=== PATIENT | female | born 1950 | race Caucasian/White ===

== ENCOUNTER → 2017-02-05 | Outpatient (CLI) | payer MEDICARE ==
[~2017-02-05] MED LIST: ADVIL200 MG PO; ASPIRIN 81MG TA81 MG PO; ATENOLOL100 MG PO; CHLORTHALIDONE25 MG PO; CRESTOR5 MG PO; DAILY VITE1 TA2 PO; DICLOFENAC SOD75 MG PO; EFFEXOR XR 75MG75 MG PO; GABAPENTIN300 M1 PO; LISINOPRIL 5MG T5 MG PO; LIVALO4 MG PO; LORTAB 5/500 501 TAB PO; METFORMIN HCL1000 MG PO; PRILOSEC20 MG PO; TRAMADOL50 M1 PO; TYLENOL 325MG325 MG PO; VICODIN 5/500 T1 TAB PO; ZOFRAN4 MG PO; Zofran4 MG PO
--- NOTE | 2017-02-05 14:56 | RADIOLOGY REPORT PS360 ---
[id number] VIEWS HISTORY: RT SHOULDER PAIN ORDERING PHYSICIAN: Steven Damon MD PATIENT AGE: 66 years COMPARISON: None FINDINGS: There is moderate subacromial stenosis with hypertrophic change of the acromioclavicular joint. Cystic changes are present involving the distal aspect of the clavicle measuring approximately 17 mm nonspecific and may be due to a subarticular cyst from osteoarthritic change. There are mild osteoarthritic changes of the glenohumeral joint. No fracture or dislocation. No destructive process evident. IMPRESSION: 1. Moderate subacromial stenosis which may result in impingement symptomatology upon the rotator cuff and could be confirmed with MRI if clinically warranted. 2. 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
== END ==
LOC: RAD 13:27
DX: M25.511 Pain in right shoulder (principal)

== ENCOUNTER 2017-06-14 09:10 | Outpatient (CLI) | payer MEDICARE ==
[~2017-06-14 09:10] MED LIST changes: +FLONASE 50 MCG16 GM; +LEVAQUIN500 MG PO; +NYSTATIN SUSPEN60 ML PO; +PROMETHAZINE D118 ML PO
[2017-06-14 09:40] VITALS: BP 147/56
[2017-06-14 10:10] VITALS: BP 138/59
[2017-06-14 10:25] VITALS: BP 141/61
== END 2017-06-14 10:30 | disposition home or self-care (01) ==
LOC: COP 09:10
DX: N39.0 Urinary tract infection, site not specified (principal); B96.20 Unspecified Escherichia coli [E. coli] as the cause of diseases classified elsewhere; Z16.12 Extended spectrum beta lactamase (ESBL) resistance
CPT/HCPCS: J1335

== ENCOUNTER → 2017-08-13 | Outpatient (CLI) | payer MEDICARE ==
--- NOTE | 2017-08-13 14:44 | RADIOLOGY REPORT PS360 ---
CT CHEST W/O CONTRAST HISTORY: Cough, anemia ANEMIA,COUGH,LIVER CYSTS,RENAL LESIONS ORDERING PHYSICIAN: Clifford Daugherty MD PATIENT AGE: 66 years TECHNIQUE: Helical acquisition obtained following the intravenous administration of 75 mL of Isovue 370 .. Axial, sagittal, and coronal reformatted images are generated and reviewed. COMPARISON: None FINDINGS: The left lobe of the thyroid gland is enlarged with hypoattenuation along the mid pole measuring 17 mm. Coronary artery calcifications are present. Scattered small lymph nodes are present in the mediastinum and aldo. No mediastinal or hilar mass is evident. No axillary adenopathy. There is mild dilatation of the proximal descending portion of the thoracic aorta measuring up to 3.8 cm. The mid descending thoracic aorta is 2.7 cm. No pericardial effusion. Normal heart size. Scattered calcified granulomas are present. There are mild fibrotic changes in the right lung base posteriorly and medially. A 3 mm noncalcified nodules present in the mid aspect of the left lower lobe nonspecific. No effusions or infiltrates. Upper abdominal images demonstrates multiple hepatic cysts measuring up to 5.5 cm in the hepatic dome. 2.8 cm left renal cyst. The adrenal glands are unremarkable. There are postsurgical changes of the upper lumbar spine. IMPRESSION: 1. Scattered pulmonary fibrotic changes with evidence of old granulomatous disease. 3 mm noncalcified nodule with aspect of the left lower lobe nonspecific 2. Coronary artery disease. 3. Enlarged left lobe of thyroid gland with hypoattenuation suggesting a nodule. This may be better evaluated with ultrasound. 4. Hepatic and left renal cysts
== END ==
LOC: RAD 12:34
DX: R05 Cough (principal); D64.9 Anemia, unspecified; N28.89 Other specified disorders of kidney and ureter; Q44.6 Cystic disease of liver

== ENCOUNTER → 2017-08-23 | Outpatient (CLI) | payer MEDICARE ==
[2017-08-24 08:41] LABS: Immunoglobulin A, Qn 128 mg/dL (87-352); Immunoglobulin G, Qn 1001 mg/dL (700-1600); Immunoglobulin M, Qn 108 mg/dL (26-217)
[2017-08-24 09:37] LABS: Folate (Folic Acid) >20.0 ng/mL (>3.0); Vitamin B12 521 pg/mL (211-946)
[2017-08-24 16:41] LABS: Albumin 3.3 g/dL (2.9-4.4); Alpha-1-Globulin 0.2 g/dL (0.0-0.4); Gamma Globulin 1.1 g/dL (0.4-1.8); Protein, Total 6.8 g/dL (6.0-8.5)
== END ==
LOC: LAB 11:42
PROVIDERS: Nurse Practitioner
DX: D64.9 Anemia, unspecified (principal); N28.9 Disorder of kidney and ureter, unspecified; Z87.11 Personal history of peptic ulcer disease

== ENCOUNTER → 2017-08-24 | Outpatient (CLI) | payer MEDICARE ==
[2017-08-27 14:52] LABS: STOOL OCCULT BLOOD NEGATIVE (NEG)
== END ==
LOC: LAB 09:00
PROVIDERS: Nurse Practitioner
DX: D64.9 Anemia, unspecified (principal); N28.9 Disorder of kidney and ureter, unspecified; Z87.11 Personal history of peptic ulcer disease
CPT/HCPCS: G0328

== ENCOUNTER → 2017-08-25 | Outpatient (CLI) | payer MEDICARE ==
[2017-08-27 14:53] LABS: STOOL OCCULT BLOOD NEGATIVE (NEG)
== END ==
LOC: LAB 11:30
PROVIDERS: Nurse Practitioner
DX: D64.9 Anemia, unspecified (principal); N28.9 Disorder of kidney and ureter, unspecified; Z87.11 Personal history of peptic ulcer disease
CPT/HCPCS: G0328

== ENCOUNTER → 2017-08-26 | Outpatient (CLI) | payer MEDICARE ==
[2017-08-27 14:53] LABS: STOOL OCCULT BLOOD NEGATIVE (NEG)
== END ==
LOC: LAB 09:30
PROVIDERS: Nurse Practitioner
DX: D64.9 Anemia, unspecified (principal); N28.9 Disorder of kidney and ureter, unspecified; Z87.11 Personal history of peptic ulcer disease
CPT/HCPCS: G0328

== ENCOUNTER → 2017-10-01 | Outpatient (CLI) | payer MEDICARE ==
[~2017-10-01] MED LIST changes: +PRILOSEC2.5 MG/Pac
--- NOTE | 2017-10-01 12:52 | RADIOLOGY REPORT PS360 ---
FOOT-LT-3 VIEWS HISTORY: Lateral foot pain following injury LEFT FOOT PAIN ORDERING PHYSICIAN: Lulu Moraes APRN PATIENT AGE: 67 years COMPARISON: None FINDINGS: Weightbearing views are performed. There is a nondisplaced oblique fracture through the base of the fifth metatarsal extending into the proximal articular surface. Mild pes planus. There is some mild calcification anterior to a small calcaneal spur. There is normal mineralization.. There is mild hypertrophic change of the distal first metatarsal with mild osteophyte formation. IMPRESSION: Nondisplaced oblique fracture proximal aspect of fifth metatarsal. Pes planus with mild hypertrophic change of the distal aspect of the first metatarsal
== END ==
LOC: RAD 11:32
DX: M79.672 Pain in left foot (principal)

== ENCOUNTER 2017-10-27 12:56 | Inpatient (IN) | payer MEDICARE, OTHER ==
[~2017-10-27] VITALS: Ht 167.6 cm; Wt 94.3 kg
--- OUTSIDE RECORDS SUMMARY | 2017-10-27 13:13 | External Medical Summary Rpt | CCD ---
Author Author , LAURA Organization [facility] Address Unknown Phone [email or web address] Immunization Name Date Rout CVX Reac Dose Comm Prov Is Faci e tion ent ider Refu lity Give sed n Infl 10-1 0.5 Hist PD20 No PD20 uenz 1-20 mL oric 255 255 a 17 al Quad Info rmat W/Pr ion es - Sour ce Unsp ecif ied Zost 02-1 121 1 mL Hist RITE No RITE er 6-20 oric AID0 AID0 17 al 3938 3938 Info rmat ion - Sour ce Unsp ecif ied Infl 12-0 140 0.5 Hist KHAF No RITE uenz 1-20 mL oric TATIANNA AID0 a, 16 al AYMA 3938 P-Fr Info N ee rmat ion - Sour ce Unsp ecif ied Hep 05-2 43 999 Hist H149 No H149 B, 9-20 oric adul 01 al t Info rmat ion - Sour ce Unsp ecif ied Hep 11-1 Intr 43 999 Hist H149 No H149 B, 4-20 amus oric adul 00 cula al t r Info rmat ion - Sour ce Unsp ecif ied Hep 10-0 Subc 43 999 Hist H149 No H149 B, 3-20 utan oric adul 00 eous al t Info rmat ion - Sour ce Unsp ecif ied Td 03-0 Intr 9 999 Hist H149 No H149 (helder 6-19 amus oric lt), 97 cula al r Info adso rmat rbed ion - Sour ce Unsp ecif ied
--- OUTSIDE RECORDS SUMMARY | 2017-10-27 13:13 | External Medical Summary Rpt | CCD ---
Author Author , LAURA SANCHEZ Address Unknown Phone [email or web address] Name Relationship Address Phone JENNIFER, Next Of Kin [address] [address] [address] Purpose Continuity of Care Document - 09-09-2013 through 2016 Problems Code Diagnosis DOS Provider Status D72.825 BANDEMIA N12 TUBULO-INTE RSTITIAL NEPHRITIS, NOT SPCF ACUTE OR CHRONIC Allergies, Adverse Reactions, Alerts Type Drug Allergy Adverse Reaction to Substance Substance Reaction Severity Penicillin Unknown Unknown Penicillin G Unknown Unknown Acetaminophen Unknown Unknown Hydrocodone Unknown Unknown Medications Na ND Rx Da Fi Fi Am Da Di Ph RX Ph St me C No te ll ll ou ys ag ar # ys at rm s nt no ma ic us Or Da si cy ia de te s n re d SO 00 10 0 No DI 40 -1 UM 97 9- Lo 98 20 ng CH 30 13 er LO 9 RI Ac DE ti ve 0. 9% SO MAME TI ON Sa 63 10 0 No li 80 -1 ne 70 9- Lo 10 20 ng Fl 07 13 er us 5 h Ac 10 ti ML ve Sy ri ng e ON 00 10 0 No DA 64 -1 NS 16 9- Lo ET 08 20 ng RO 02 13 er N 5 HC Ac L ti 4 ve MG /2 ML AL Vital Signs 09-09-2013 11:47 Name Value Interpretat Reference Comment ion Range BP 120 mm[Hg] Diastolic BP Systolic 150 mm[Hg] Heart 65 /min Rate/Pulse O2% 100 % Respiratory 20 /min Rate 09-09-2013 09:52 Name Value Interpretat Reference Comment ion Range BP 82 mm[Hg] Diastolic BP Systolic 137 mm[Hg] Heart 66 /min Rate/Pulse O2% 100 % Respiratory 20 /min Rate Results Labs Lab Lab Date Result Refere Interp Status Commen Order Detail nces retati t Range on Protein Electrophoresis (10-06-2017 14:17) Serum = 1.0 0.7-1.7 complet or 017 ed plasma 14:17 albumin /globul in mass ra Serum = 3.4 2.2-3.9 complet globuli 017 g/dL ed n 14:17 measure ment by calcula mark Serum = 0.3 Not complet or 017 g/dL Observe ed plasma 14:17 d protein monoclo nal measu Serum = 1.2 0.4-1.8 complet gamma 017 g/dL ed globuli 14:17 n measure ment by prot Serum = 1.0 0.7-1.3 complet or 017 g/dL ed plasma 14:17 beta globuli n measure men Serum = 1.0 0.4-1.0 complet alpha-2 017 g/dL ed -globul 14:17 in measure ment Serum = 0.2 0.0-0.4 complet alpha-1 017 g/dL ed -globul 14:17 in measure ment Serum = 3.5 2.9-4.4 complet albumin 017 g/dL ed 14:17 measure ment by protein alma Please Comment . complet note: 017 ed 14:17 Comment: Comment: Protein electrophoresis scan will follow via computer, Comment: mail, or banking assistant delivery. Comment: Performed at: [facility] Comment: [id number], [place] [phone] Comment: [employer] Management Specialist: Rodrigue Lanza PhD, Phone: [phone] Serum = 6.9 6.0-8.5 complet or 017 g/dL ed plasma 14:17 protein measure ment (mas Serum or plasma uric acid measurement (m (10-06-2017 14:17) Serum = 8.7 2.6-7.2 complet or 017 mg/dL ed plasma 14:17 uric acid measure ment (m Phosphorus measurement (10-06-2017 14:17) Phospho = 3.7 2.4-4.9 complet jonnathan 017 mg/dL ed measure 14:17 ment CBC w auto diff (10-06-2017 14:17) Blood = 10.2 4.8-10. complet leukocy 017 K/MM3 8 ed aga 14:17 count (number /volume ) Automat = 13.0 11.5-17 complet ed 017 % .5 ed erythro 14:17 cyte distrib ution width Red = 3.52 4.2-5.4 complet blood 017 M/mm3 ed cell 14:17 count Blood = 491 142-424 complet platele 017 K/mm3 ed t count 14:17 Automat = 7.6 7.4-10. complet ed 017 fl 4 ed blood 14:17 platele t mean volume babak [place] % = 6.0 % 1.7-9.3 complet 017 ed 14:17 Absolut = 0.6 0.1-1.0 complet e 017 K/mm3 ed monocyt 14:17 e count Automat = 91.5 82.2-97 complet ed 017 fl .8 ed erythro 14:17 cyte mean corpusc ular v Automat = 31.4 31.8-35 complet ed 017 g/dl .4 ed erythro 14:17 cyte mean corpusc ular h Mean = 28.7 27-31.2 complet corpusc 017 pg ed ular 14:17 hemoglo bin ([facility]) determ Lymphoc = 24.5 10-50.0 complet yte 017 % ed count, 14:17 blood, automat ed Absolut = 2.5 0.7-4.5 complet e 017 K/mm3 ed lymphoc 14:17 yte count Blood = 10.1 12.2-16 complet hemoglo 017 g/dL .2 ed bin 14:17 measure ment (mass/v olum Blood = 32.2 37.0-47 complet hematoc 017 % .0 ed rit 14:17 (volume fractio n) Granulo = 54.9 37.0-80 complet cyte 017 % .0 ed percent 14:17 age Blood = 5.6 1.8-7.8 complet granulo 017 K/mm3 ed cytes 14:17 automat ed count (numb Automat = 13.8 0.1-12. complet ed 017 % 0 ed blood 14:17 eosinop hils/10 0 leukocy t Automat = 1.4 0.0-0.4 complet ed 017 K/mm3 ed blood 14:17 eosinop hil count Baso % = 0.9 % 0.1-2.0 complet 017 ed 14:17 Automat 2 = 0.1 0-0.2 complet ed 017 K/MM3 ed blood 14:17 basophi l count (count/ vo Comprehensive metabolic panel (10-06-2017 14:17) Protein = 7.3 6.4-8.2 complet total 017 gm/dL ed ser/jesica 14:17 s ALT = 21 12-78 complet (SGPT) 017 U/L ed ser/jesica 14:17 s Serum = 17 15-37 complet or 017 U/L ed plasma 14:17 asparta te aminotr ansfera Serum = 137 136-145 complet sodium 017 mmoL/L ed measure 14:17 ment Serum = 4.4 3.5-5.1 complet potassi 017 mmoL/L ed um 14:17 measure ment Serum = 133 74-106 complet or 017 mg/dL ed plasma 14:17 glucose measure ment (mas Serum = 3.7 1.3-3.2 complet globuli 017 gm/dL ed n 14:17 measure ment (mass/v olume) Estimat = 32 59- complet ed 017 ML/MIN ed glomeru 14:17 lar filtrat ion rate (GF Comment: REFERENCE RANGE: >60 ML/MIN/1.73 SQUARE METERS Comment: If this patient is -[place], then multiply the Comment: result by 1.210. Estimat = 52 50-200 complet ion of 017 ML/MIN ed creatin 14:17 ine renal clearan ce Serum = 1.6 0.55-1. complet or 017 mg/dL 02 ed plasma 14:17 creatin ine measure ment ( Carbon = 28 21.0-32 complet dioxide 017 mmoL/L .0 ed 14:17 measure ment Serum = 103 98-107 complet or 017 mmoL/L ed plasma 14:17 chlorid e measure ment (mo Serum 2 = 9.2 8.5-10. complet or 017 mg/dL 1 ed plasma 14:17 calcium measure ment (mas Serum = 24 7-18 complet or 017 mg/dL ed plasma 14:17 urea nitroge n measure men Serum 2 = 0.3 0.2-1.0 complet or 017 mg/dL ed plasma 14:17 total bilirub in measure m Serum = 130 46-116 complet or 017 U/L ed plasma 14:17 alkalin e phospha tase babak Serum = 3.6 3.4-5.0 complet or 017 gm/dL ed plasma 14:17 albumin measure ment (mas Serum 2 = 1.0 1.1-1.8 complet or 017 ed plasma 14:17 albumin /globul in mass ra Hemoglobin.gastrointestinal [Presence] in Stool (08-26-2017 09:30) Hemoglo NEGATIV NEG complet bin.gas 017 E ed trointe 09:30 stinal [Presen ce] in Stool --1st specime n Hemoglobin.gastrointestinal [Presence] in Stool (08-25-2017 11:30) Hemoglo NEGATIV NEG complet bin.gas 017 E ed trointe 11:30 stinal [Presen ce] in Stool --1st specime n Hemoglobin.gastrointestinal [Presence] in Stool (08-24-2017 09:00) Hemoglo NEGATIV NEG complet bin.gas 017 E ed trointe 09:00 stinal [Presen ce] in Stool --1st specime n Differential panel, method unspecified - (06-09-2017 23:58) Anisocy 1+ complet tosis 017 ed [Presen 23:58 ce] in Blood LYMPH 3 % 10% - Low complet 017 50% ed 23:58 Platele NORMAL complet ts 017 ed [Presen 23:58 ce] in Blood by Light microsc opy Stomato 2+ complet cytes 017 ed [Presen 23:58 ce] in Blood by Light microsc opy Urinalysis dipstick W Reflex Microscopic panel in Urine (06-09-2017 23:50) Bacteri 4+ O complet a 017 ed [Presen 23:50 ce] in Urine sedimen t by Light microsc opy Erythro 20-50 0 complet cytes 017 ed [Presen 23:50 ce] in Urine sedimen t by Light microsc opy Epithel 5-10 0#/hp complet ial 017 f - ed cells.s 23:50 5#/hp quamous f [Presen ce] in Urine sedimen t by Microsc opy high power field Urinalysis dipstick W Reflex Microscopic panel in Urine (06-09-2017 23:50) Appeara CLOUDY CLEAR complet nce of 017 ed Urine 23:50 Bilirub NEGATIV NEG complet in 017 E ed [Presen 23:50 ce] in Urine by Test strip Erythro 3+ NEG Abnorma complet cytes 017 l ed [Presen 23:50 ce] in Urine Color YELLOW YELLOW complet of 017 ed Urine 23:50 Ketones NEGATIV NEG complet 017 E ed [Presen 23:50 ce] in Urine by Automat ed test strip Mucus 2+ NEG Abnorma complet [Presen 017 l ed ce] in 23:50 Urine sedimen t by Light microsc opy Nitrite NEGATIV NEG complet 017 E ed [Presen 23:50 ce] in Urine by Test strip Urobili 0.2 NEG complet nogen 017 ed [Presen 23:50 ce] in Urine by Test strip Influenza virus A+B Ag [Presence] in Unspecified specimen (06-09-2017 00:25) Influen NOT NOT complet za 017 DETECTE DETECTD ed virus A 00:25 D Ag [Presen ce] in Unspeci fied specime n Influen NOT NOT complet za 017 DETECTE DETECTD ed virus B 00:25 D Ag [Presen ce] in Unspeci fied specime n URINALYSIS/COMPLETE (09-09-2013 11:00) URINE 09-09-2 YELLOW YELLOW complet COLOR 013 ed 11:00 URINE 09-09-2 CLOUDY CLEAR complet APPEARA 013 ed NCE 11:00 URINE 09-09-2 NEGATIV NEG complet GLUCOSE 013 E ed - 11:00 DIPSTIC K URINE 09-09-2 NEGATIV NEG complet BILIRUB 013 E ed IN - 11:00 DIPSTIC K URINE 09-09-2 NEGATIV NEG complet KETONE 013 E mg/dL ed 11:00 URINE 09-09-2 1.010 1.005-1 complet SPECIFI 013 UNK .030 ed C 11:00 GRAVITY URINE 09-09- NEGATIV NEG complet BLOOD 013 E ed 11:00 URINE 09-09-2 8.0 UNK 5.0-8.5 complet PH 013 ed 11:00 URINE 09-09- NEGATIV NEG complet PROTEIN 013 E mg/dL ed - 11:00 DIPSTIC K URINE 09-09-2 0.2 NEG complet UROBILI 013 E.U./dL ed NOGEN - 11:00 DIPSTIC K URINE 09-09-2 NEGATIV NEG complet NITRATE 013 E ed - 11:00 DIPSTIC K URINE 09-09-2 NEGATIV NEG complet LEUK 013 E ed ESTERAS 11:00 E URINE 09-09- 10-20 O complet WBC 013 wbc/hpf ed 11:00 URINE 09-09- 20-50 0-5 complet SQUAMOU 013 #/hpf ed S CELLS 11:00 URINE 09-09- 1+ O complet BACTERI 013 ed A 11:00 URINE 09-09-2 OCC OCC complet MUCUS 013 ed 11:00 COMPREHENSIVE METABOLIC PANEL (09-09-2013 09:20) Glucose 09-09- 163 74-106 complet 013 mg/dL ed Bld-mCn 09:20 c BUN 09-09- 16 7-18 complet Bld-mCn 013 mg/dL ed c 09:20 Creat 09-09-2 1.1 0.6-1.0 complet SerPl-m 013 mg/dL ed Cnc 09:20 ESTIMAT 09-09- 73 50-200 complet ED 013 ML/MIN ed CREATIN 09:20 INE CLEARAN CE GFR 09-09- 50 59- complet (ESTIMA 013 ML/MIN ed LIZETH) 09:20 Sodium 09-09- 142 136-145 complet SerPl-s 013 mmoL/L ed Cnc 09:20 Potassi 09-09- 3.4 3.5-5.1 complet um 013 mmoL/L ed SerPl-s 09:20 Cnc Chlorid 103 98-107 complet e 013 mmoL/L ed SerPl-s 09:20 Cnc CO2 25 21.0-32 complet SerPl-s 013 mmoL/L .0 ed Cnc 09:20 Calcium 09-09- 9.0 8.5-10. complet 013 mg/dL 1 ed SerPl-m 09:20 Cnc Prot 09-09- 8.3 6.4-8.2 complet SerPl-m 013 gm/dL ed Cnc 09:20 Albumin 09-09- 3.6 3.4-5.0 complet 013 gm/dL ed SerPl-m 09:20 Cnc Globuli 4.7 1.3-3.2 complet n 013 gm/dL ed Ser-mCn 09:20 c Albumin 0.8 UNK 1.1-1.8 complet /Glob 013 ed SerPl-m 09:20 Rto Bilirub 09-09- 0.5 0.2-1.0 complet 013 mg/dL ed SerPl-m 09:20 Cnc AST 20 U/L 15-37 complet SerPl-c 013 ed Cnc 09:20 ALT 09-09- 35 U/L 30-65 complet SerPl-c 013 ed Cnc 09:20 ALP 09-09- 156 U/L 50-136 complet SerPl-c 013 ed Cnc 09:20 Amylase SerPl-cCnc (09-09-2013 09:20) Amylase 09-09- 23 U/L 25-115 complet 013 ed SerPl-c 09:20 Cnc LIPASE (09-09-2013 09:20) LIPASE 09-09- 112 U/L 73-393 complet 013 ed 09:20 CBC with AUTO DIFF (09-09-2013 09:20) WBC # 10-19-2 11.3 4.8-10. complet Bld 013 K/MM3 8 ed Auto 09:20 RBC # 10--2 3.95 4.2-5.4 complet Bld 013 M/mm3 ed Auto 09:20 Hgb 19-2 12.0 12.2-16 complet Bld-mCn 013 g/dL .2 ed c 09:20 Hct Fr 09-09-2 36.1 % 37.0-47 complet Bld 013 .0 ed 09:20 MCV RBC 19-2 91.4 fl 82.2-97 complet 013 .8 ed 09:20 MCH RBC 09-09-2 30.5 pg 27-31.2 complet Qn 013 ed Auto 09:20 MEAN 09-09-2 33.3 31.8-35 complet CORPUSC 013 g/dl .4 ed ULAR 09:20 HGB CONC RDW RBC 09-09-2 14.7 % 11.5-17 complet Auto 013 .5 ed 09:20 Platele -19-2 448 142-424 complet t Bld 013 K/mm3 ed Ql 09:20 Manual MEAN 09-09-2 7.6 fl 7.4-10. complet PLATELE 013 4 ed T 09:20 VOLUME Granulo -19-2 74.1 % 37.0-80 complet cytes 013 .0 ed Fr Bld 09:20 Auto LYMPH % 10-19-2 19.9 % 10-50.0 complet 013 ed 09:20 Monocyt 10-19-2 4.5 % 1.7-9.3 complet es Fr 013 ed Bld 09:20 Auto Eosinop 10-19-2 1.0 % 0.1-12. complet hil Fr 013 0 ed Bld 09:20 Auto Basophi 10-19-2 0.4 % 0.1-2.0 complet ls Fr 013 ed Bld 09:20 Auto Granulo 10-19-2 8.4 1.8-7.8 complet cytes # 013 K/mm3 ed Bld 09:20 Auto Lymphoc 10-19-2 2.3 0.7-4.5 complet ytes Fr 013 K/mm3 ed Bld 09:20 Auto Monocyt 10-19-2 0.5 0.1-1.0 complet es # 013 K/mm3 ed Bld 09:20 Auto Eosinop 10-19-2 0.1 0.0-0.4 complet hil # 013 K/mm3 ed Bld 09:20 Auto Basophi 10-19-2 0.0 0-0.2 complet ls # 013 K/MM3 ed Bld 09:20 Auto Encounters Encounter Start End Date Code Location Performer Type Date Emergency MAREK Horvath (ER) 3 09:29 3 11:[address] [facility] Herman Padilla
--- OUTSIDE RECORDS SUMMARY | 2017-10-27 13:13 | External Medical Summary Rpt | CCD ---
Author Author , LAURA Organization [facility] Address Unknown Phone [email or web address] Immunization Name Date Rout CVX Reac Dose [...]
--- OUTSIDE RECORDS SUMMARY | 2017-10-27 13:13 | External Medical Summary Rpt | CCD ---
Author Author , LAURA SANCHEZ Address Unknown Phone [email or web address] Name Relationship Address Phone JENNIFER, Next Of Kin [address] [place] [address] Purpose Continuity of Care Document - 09-09-2013 [...] will follow via computer, Comment: mail, or senior analyst market intelligence delivery. Comment: Performed at: [facility] Comment: [id number], [place] [phone] Comment: Shut Off Worker: Rodrigue Lanza PhD, Phone: [phone] Serum = 6.9 6.0-8.5 complet or 017 [...] blood 14:17 platele t mean volume babak [place] % = 6.0 % 1.7-9.3 complet 017 [...] SQUARE METERS Comment: If this patient is -[place], then multiply the Comment: result by 1.210. [...] MAREK Horvath (ER) 3 09:29 3 11:48 [place] Herman Padilla
--- OUTSIDE RECORDS SUMMARY | 2017-10-27 13:14 | External Medical Summary Rpt ---
Author Author [facility] [employer], [facility] [employer] Organization [facility] Address Unknown Phone Unavailable Results Protein Electrophoresis Observa Value Referen Units Interpr Notes Date tion ce etation Range Protein 6.0 - 8.5 g/dL No No Nov 15 [Mass/vol informati informati 2017 2:17 ume] in on in on in PM Serum or source source Plasma data data Please Comment . No No Protein Nov 15 note: informa informa 2017 tion in tion in electro 2:17 PM source source phoresi data data s scan will follow via compute r,mail, or adjunct business instructor deliver yVanPerfo rmed at: - [facility] [id number] Directo r: Rodrigue Hutchinson ti PhD, Phone: [phone] Albumin 2.9 - 4.4 g/dL No No Nov 15 [Mass/vol informati informati 2017 2:17 ume] in on in on in PM Serum or source source Plasma by data data Electroph oresis Alpha 1 0.0 - 0.4 g/dL No No Nov 15 globulin informati informati 2017 2:17 [Mass/vol on in on in PM ume] in source source Serum or data data Plasma by Electroph oresis Alpha 2 0.4 - 1.0 g/dL No No Nov 15 globulin informati informati 2017 2:17 [Mass/vol on in on in PM ume] in source source Serum or data data Plasma by Electroph oresis Beta 0.7 - 1.3 g/dL No No Nov 15 globulin informati informati 2017 2:17 [Mass/vol on in on in PM ume] in source source Serum or data data Plasma by Electroph oresis Gamma 0.4 - 1.8 g/dL No No Nov 15 globulin informati informati 2017 2:17 [Mass/vol on in on in PM ume] in source source Serum or data data Plasma by Electroph oresis Protein.m Not g/dL High No Nov 15 onoclonal Observed informati 2016 2:17 on in PM [Mass/vol source ume] in data Serum or Plasma by Electroph oresis Globulin 2.2 - 3.9 g/dL No No Oct 06 [Mass/vol informati informati 2016 2:17 ume] in on in on in PM Serum by source source calculati data data on Albumin/G 0.7 - 1.7 No No Oct 06 lobulin informati informati informati 2016 2:17 [Mass on in on in on in PM ratio] in source source source Serum or data data data Plasma Comprehensive metabolic 2000 panel in Serum or Plasma Observa Value Referen Units Interpr Notes Date tion ce etation Range Albumin/G 1.1 - 1.8 No Low No Oct 06 lobulin informati informati 2016 2:17 [Mass on in on in PM ratio] in source source Serum or data data Plasma Albumin 3.4 - 5.0 gm/dL Normal No Oct 06 [Mass/vol informati 2016 2:17 ume] in on in PM Serum or source Plasma data Alkaline 46 - 116 U/L High No Oct 06 phosphata informati 2016 2:17 se on in PM [Enzymati source c data activity/ volume] in Serum or Plasma Bilirubin 0.2 - 1.0 mg/dL Normal No Oct 06 .total informati 2016 2:17 [Mass/vol on in PM ume] in source Serum or data Plasma Urea 7 - 18 mg/dL High No Oct 06 nitrogen informati 2016 2:17 [Mass/vol on in PM ume] in source Serum or data Plasma Calcium 8.5 - mg/dL Normal No Oct 06 [Mass/vol 10.1 informati 2016 2:17 ume] in on in PM Serum or source Plasma data Chloride 98 - 107 mmoL/L Normal No Oct 06 [Moles/vo informati 2016 2:17 lume] in on in PM Serum or source Plasma data Carbon 21.0 - mmoL/L Normal No Oct 06 dioxide, 32.0 informati 2017 2:17 total on in PM [Moles/vo source lume] in data Serum or Plasma Creatinin 0.55 - mg/dL High No Oct 06 e 1.02 informati 2017 2:17 [Mass/vol on in PM ume] in source Serum or data Plasma Creatinin 50 - 200 ML/MIN Normal No Oct 06 e renal informati 2017 2:17 clearance on in PM source predicted data by Cockcroft -Gault formula Estimated 59- ML/MIN Low REFERENCE Oct 06 RANGE: 2016 2:17 glomerula >60 PM r ML/MIN/1. filtratio 73 SQUARE n rate METERSIf (GF this patient is -A merican, then multiply theresult by 1.210. Globulin 1.3 - 3.2 gm/dL High No Oct 06 [Mass/vol informati 2016 2:17 ume] in on in PM Serum source data Glucose 74 - 106 mg/dL High No Oct 06 [Mass/vol informati 2016 2:17 ume] in on in PM Serum or source Plasma data Potassium 3.5 - 5.1 mmoL/L Normal No Oct 062016 2:17 [Moles/vo on in PM lume] in source Serum or data Plasma Sodium 136 - 145 mmoL/L Normal No Oct 06 [Moles/vo informati 2016 2:17 lume] in on in PM Serum or source Plasma data Aspartate 15 - 37 U/L Normal No Oct 062016 2:17 aminotran on in PM sferase source [Enzymati data c activity/ volume] in Serum or Plasma Alanine 12 - 78 U/L Normal No Oct 06 aminotran 2016 2:17 sferase on in PM [Enzymati source c data activity/ volume] in Serum or Plasma Protein 6.4 - 8.2 gm/dL Normal No Oct 06 [Mass/vol informati 2016 2:17 ume] in on in PM Serum or source Plasma data Phosphate [Moles/volume] in Unspecified specimen Observa Value Referen Units Interpr Notes Date ti ce etation Range Phosphate 2.4 - 4.9 mg/dL Normal No Oct 062016 2:17 [Moles/vo on in PM lume] in source Unspecifi data ed specimen Urate [Mass/volume] in Serum or Plasma Observa Value Referen Units Interpr Notes Date ti ce etation Range Urate 2.6 - 7.2 mg/dL High No Oct 06 [Mass/vol informati 2016 2:17 ume] in on in PM Serum or source Plasma data CBC W Auto Differential panel in Blood Observa Value Referen Units Interpr Notes Date ti ce etation Range Basophils 0 - 0.2 K/MM3 Normal No Sep 15 2016 2:17 [#/volume on in PM ] in source Blood by data Automated count Basophils 0.1 - 2.0 % Normal No Sep 15 /100 inform2016 2:17 leukocyte on in PM s in source Blood by data Automated count Eosinophi 0.0 - 0.4 K/mm3 High No Sep 15 ls 2016 2:17 [#/volume on in PM ] in source Blood by data Automated count Eosinophi 0.1 - % High No Oct 06 ls/100 12.0 informati 2016 2:17 leukocyte on in PM s in source Blood by data Automated count Granulocy 1.8 - 7.8 K/mm3 Normal No Sep 15 aga informati 2016 2:17 [#/volume on in PM ] in source Blood by data Automated count Granulocy 37.0 - % Normal No Oct 06 aga/100 80.0 inform2016 2:17 leukocyte on in PM s in source Blood by data Automated count Hematocri 37.0 - % Low No Oct 06 t [Volume 47.0 ati 2016 2:17 on in PM Fraction] source of Blood data Hemoglobi 12.2 - g/dL Low No Oct 06 n 16.2 informati 2016 2:17 [Mass/vol on in PM ume] in source Blood data Lymphocyt 0.7 - 4.5 K/mm3 Normal No Oct 06 es 2016 2:17 [#/volume on in PM ] in source Unspecifi data ed specimen by Automated count Lymphocyt 10 - 50.0 % Normal No Oct 06 es 2016 2:17 [#/volume on in PM ] in source Unspecifi data ed specimen by Automated count Erythrocy 27 - 31.2 pg Normal No Oct 06 te mean 2016 2:17 corpuscul on in PM ar source hemoglobi data n [Entitic mass] Erythrocy 31.8 - g/dl Low No Oct 06 te mean 35.4 informati 2016 2:17 corpuscul on in PM ar source hemoglobi data n concentra tion [Mass/vol ume] by Automated count Erythrocy 82.2 - fl Normal No Oct 06 te mean 97.8 informati 2016 2:17 corpuscul on in PM ar volume source [Entitic data volume] by Automated count Monocytes 0.1 - 1.0 K/mm3 Normal No Oct 062016 2:17 [#/volume on in PM ] in source Blood by data Automated count Monocytes 1.7 - 9.3 % Normal No Sep 15 /100 inform2016 2:17 leukocyte on in PM s in source Blood by data Automated count Platelet 7.4 - fl Normal No Oct 06 mean 10.4 ati 2016 2:17 volume on in PM [Entitic source volume] data in Blood by Automated count Platelets 142 - 424 K/mm3 High No Oct 062016 2:17 [#/volume on in PM ] in source Blood data Erythrocy 4.2 - 5.4 M/mm3 Low No Oct 06 aga informati 2016 2:17 [#/volume on in PM ] in source Amniotic data fluid Erythrocy 11.5 - % Normal No Oct 06 te 17.5 informati 2016 2:17 distribut on in PM ion width source [Entitic data volume] by Automated count Leukocyte 4.8 - K/MM3 Normal No Oct 06 s 10.8 informati 2016 2:17 [#/volume on in PM ] in source Blood data Hemoglobin.gastrointestinal [Presence] in Stool Observa Value Referen Units Interpr Notes Date ti ce etation Range Hemoglo NEGATIV NEG No No No Aug 5 bin.gas E informa informa informa 2016 trointe tion in tion in tion in 9:30 AM stinal source source source [Presen data data data ce] in Stool --1st specime n Hemoglobin.gastrointestinal [Presence] in Stool Observa Value Referen Units Interpr Notes Date ti ce etation Range Hemoglo NEGATIV NEG No No No Aug 4 bin.gas E informa informa informa 2016 trointe tion in tion in tion in 11:30 stinal source source source AM [Presen data data data ce] in Stool --1st specime n Hemoglobin.gastrointestinal [Presence] in Stool Observa Value Referen Units Interpr Notes Date ti ce etation Range Hemoglo NEGATIV NEG No No No Aug 3 bin.gas E informa informa informa 2017 trointe tion in tion in tion in 9:00 AM stinal source source source [Presen data data data ce] in Stool --1st specime n Protein [Mass/time] in 24 hour Urine Observa Value Referen Units Interpr Notes Date tion ce etation Range Creatinin No HOURS No No Sep 18 e renal informati informati informati 2017 clearance on in on in on in 11:54 AM in source source source unspecifi data data data ed time Protein 40 - 90 mg/24_HR High No Sep 18 [Mass/vol informati 2017 ume] in on in 11:54 AM 24 hour source Urine data Volume of 250 - mL Normal No Sep 18 Urine 2400 informati 2017 on in 11:54 AM source data Creatinine 24H renal clearance panel Observa Value Referen Units Interpr Notes Date tion ce etation Range Creatinin 0.55 - mg/dL High No Sep 18 e 1.02 informati 2017 [Mass/vol on in 11:54 AM ume] in source Serum or data Plasma Creatinin 600 - mg/24HR Normal No Sep 18 e 1600 informati 2017 [Mass/vol on in 11:54 AM ume] in source Urine data Creatine No mg/dL No No Sep 18 [Mass/vol informati informati informati 2016 ume] in on in on in on in 11:54 AM Urine source source source data data data Creatinin 70 - 156 ml/min Low No Sep 18 e renal informati 2017 clearance on in 11:54 AM in source unspecifi data ed time Creatinin No HOURS No No Sep 18 e renal informati informati informati 2017 clearance on in on in on in 11:54 AM in source source source unspecifi data data data ed time Volume of 250 - mL Normal No Sep 18 Urine 2400 informati 2017 on in 11:54 AM source data Erythropoietin (EPO) [Units/volume] in Serum or Plasma Observa Value Referen Units Interpr Notes Date tion ce etation Range Erythropo 2.6 - mIU/mL High Siemens Sep 13 ietin 18.5 Immulite 2017 (EPO) 1999 12:47 PM [Units/vo Immunoche lume] in miluminom Serum or etric Plasma assay (ICMA)Per formed at: - [facility] [address] [place], [place] [id number] Campaign Consultant: Rodrigue Lanza PhD, Phone: [phone] Iron and TIBC Observa Value Referen Units Interpr Notes Date tion ce etation Range Iron 250 - 450 ug/dL No No Sep 13 binding informati informati 2017 capacity on in on in 12:47 PM [Mass/vol source source ume] in data data Serum or Plasma Iron 118 - 369 ug/dL No No Sep 13 binding informati informati 2017 capacity. on in on in 12:47 PM unsaturat source source ed data data [Mass/vol ume] in Serum or Plasma Iron 27 - 139 ug/dL No No Sep 13 [Mass/vol informati informati 2016 ume] in on in on in 12:47 PM Serum or source source Plasma data data Iron 15 - 55 % No Performed Sep 13 saturatio informati at: CB 2017 n [Mass] on in - [facility] 12:47 PM in Serum source or Plasma data [address] [id number] Campaign Consultant: Rodrigue Lanza PhD, Phone: [phone] Comprehensive metabolic 2000 panel in Serum or Plasma Observa Value Referen Units Interpr Notes Date tion ce etation Range Albumin/G 1.1 - 1.8 No Low No Sep 13 lobulin informati informati 2016 [Mass on in on in 12:47 PM ratio] in source source Serum or data data Plasma Albumin 3.4 - 5.0 gm/dL Normal No Sep 13 [Mass/vol informati 2016 ume] in on in 12:47 PM Serum or source Plasma data Alkaline 46 - 116 U/L Normal No Sep 13 phosphata informati 2016 se on in 12:47 PM [Enzymati source c data activity/ volume] in Serum or Plasma Bilirubin 0.2 - 1.0 mg/dL Normal No Sep 13 .total informati 2016 [Mass/vol on in 12:47 PM ume] in source Serum or data Plasma Urea 7 - 18 mg/dL High No Sep 13 nitrogen informati 2016 [Mass/vol on in 12:47 PM ume] in source Serum or data Plasma Calcium 8.5 - mg/dL Normal No Sep 13 [Mass/vol 10.1 informati 2016 ume] in on in 12:47 PM Serum or source Plasma data Chloride 98 - 107 mmoL/L Normal No Sep 13 [Moles/vo informati 2016 lume] in on in 12:47 PM Serum or source Plasma data Carbon 21.0 - mmoL/L Normal No Sep 13 dioxide, 32.0 informati 2016 total on in 12:47 PM [Moles/vo source lume] in data Serum or Plasma Creatinin 0.55 - mg/dL High No Sep 13 e 1.02 informati 2017 [Mass/vol on in 12:47 PM ume] in source Serum or data Plasma Creatinin 50 - 200 ML/MIN Normal No Sep 13 e renal informati 2017 clearance on in 12:47 PM source predicted data by Cockcroft -Gault formula Estimated 59- ML/MIN Low REFERENCE Sep 13 RANGE: 2017 glomerula >60 12:47 PM r ML/MIN/1. filtratio 73 SQUARE n rate METERSIf (GF this patient is -A merican, then multiply theresult by 1.210. Globulin 1.3 - 3.2 gm/dL High No Sep 13 [Mass/vol informati 2016 ume] in on in 12:47 PM Serum source data Glucose 74 - 106 mg/dL High No Sep 13 [Mass/vol informati 2016 ume] in on in 12:47 PM Serum or source Plasma data Potassium 3.5 - 5.1 mmoL/L Normal No Sep 13 inform2016 [Moles/vo on in 12:47 PM lume] in source Serum or data Plasma Sodium 136 - 145 mmoL/L Normal No Sep 13 [Moles/vo informati 2017 lume] in on in 12:47 PM Serum or source Plasma data Aspartate 15 - 37 U/L Normal No Sep 13 inform2016 aminotran on in 12:47 PM sferase source [Enzymati data c activity/ volume] in Serum or Plasma Alanine 12 - 78 U/L Normal No Sep 13 aminotran informati 2016 sferase on in 12:47 PM [Enzymati source c data activity/ volume] in Serum or Plasma Protein 6.4 - 8.2 gm/dL Normal No Sep 13 [Mass/vol informati 2016 ume] in on in 12:47 PM Serum or source Plasma data Ferritin [Mass/volume] in Serum or Plasma Observa Value Referen Units Interpr Notes Date tion ce etation Range Ferritin 8 - 388 ng/mL Normal No Sep 13 [Mass/vol informati 2017 ume] in on in 12:47 PM Serum or source Plasma data Thyroxine (T4) [Mass/volume] in Serum or Plasma Observa Value Referen Units Interpr Notes Date tion ce etation Range Thyroxine 4.7 - ug/dl Normal No Sep 13 (T4) 13.3 informati 2017 [Mass/vol on in 12:47 PM ume] in source Serum or data Plasma Thyrotropin [Units/volume] in Serum or Plasma Observa Value Referen Units Interpr Notes Date tion ce etation Range Thyrotrop 0.358 - uIU/ml Normal No Sep 13 in 3.740 2016 [Units/vo on in 12:47 PM lume] in source Serum or data Plasma CBC W Auto Differential panel in Blood Observa Value Referen Units Interpr Notes Date tion ce etation Range Basophils 0 - 0.2 K/MM3 Normal No Sep 13 inform2016 [#/volume on in 12:47 PM ] in source Blood by data Automated count Basophils 0.1 - 2.0 % Normal No Sep 13 /100 inform2016 leukocyte on in 12:47 PM s in source Blood by data Automated count Eosinophi 0.0 - 0.4 K/mm3 Normal No Sep 13 ls 2016 [#/volume on in 12:47 PM ] in source Blood by data Automated count Eosinophi 0.1 - % Normal No Sep 13 ls/100 12.0 inform2016 leukocyte on in 12:47 PM s in source Blood by data Automated count Granulocy 1.8 - 7.8 K/mm3 Normal No Sep 13 aga 2016 [#/volume on in 12:47 PM ] in source Blood by data Automated count Granulocy 37.0 - % Normal No Sep 13 aga/100 80.0 2016 leukocyte on in 12:47 PM s in source Blood by data Automated count Hematocri 37.0 - % Low No Sep 13 t [Volume 47.0 2016 on in 12:47 PM Fraction] source of Blood data Hemoglobi 12.2 - g/dL Low No Sep 13 n 16.2 2016 [Mass/vol on in 12:47 PM ume] in source Blood data Lymphocyt 0.7 - 4.5 K/mm3 Normal No Sep 13 es 2016 [#/volume on in 12:47 PM ] in source Unspecifi data ed specimen by Automated count Lymphocyt 10 - 50.0 % Normal No Sep 13 es 2016 [#/volume on in 12:47 PM ] in source Unspecifi data ed specimen by Automated count Erythrocy 27 - 31.2 pg Normal No Sep 13 te mean 2016 corpuscul on in 12:47 PM ar source hemoglobi data n [Entitic mass] Erythrocy 31.8 - g/dl Normal No Aug 04 te mean 35.4 2016 corpuscul on in 12:47 PM ar source hemoglobi data n concentra tion [Mass/vol ume] by Automated count Erythrocy 82.2 - fl Normal No Aug 04 te mean 97.8 2016 corpuscul on in 12:47 PM ar volume source [Entitic data volume] by Automated count Monocytes 0.1 - 1.0 K/mm3 Normal No Aug 042016 [#/volume on in 12:47 PM ] in source Blood by data Automated count Monocytes 1.7 - 9.3 % Normal Aug 042016 leukocyte on in 12:47 PM s in source Blood by data Automated count Platelet 7.4 - fl Low No Aug 04 mean 10.4 2016 volume on in 12:47 PM [Entitic source volume] data in Blood by Automated count Platelets 142 - 424 K/mm3 No No Aug 04ati 2016 [#/volume on in on in 12:47 PM ] in source source Blood data data Erythrocy 4.2 - 5.4 M/mm3 Low No Aug 04 aga 2016 [#/volume on in 12:47 PM ] in source Amniotic data fluid Erythrocy 11.5 - % Normal No Aug 04 te 17.5 2016 distribut on in 12:47 PM ion width source [Entitic data volume] by Automated count Leukocyte 4.8 - K/MM3 Normal No Aug 04 s 10.8 2016 [#/volume on in 12:47 PM ] in source Blood data Lactate [Moles/volume] in Blood Observa Value Referen Units Interpr Notes Date tion ce etation Range Lactate 0.4 - 2.0 mmol/L Normal No Jun 10 [Moles/vo 2016 1:19 lume] in on in AM Blood source data CBC W Auto Differential panel in Blood Observa Value Referen Units Interpr Notes Date tion ce etation Range Basophils 0 - 0.2 K/MM3 Normal No Jun 092016 [#/volume on in 11:58 PM ] in source Blood by data Automated count Basophils 0.1 - 2.0 % Normal No Jun 092016 leukocyte on in 11:58 PM s in source Blood by data Automated count Eosinophi 0.0 - 0.4 K/mm3 Normal No Jun 09 ls informati 2016 [#/volume on in 11:58 PM ] in source Blood by data Automated count Eosinophi 0.1 - % Normal No Jun 09 ls/100 12.0 inform2016 leukocyte on in 11:58 PM s in source Blood by data Automated count Granulocy 1.8 - 7.8 K/mm3 High No Jun 09 aga inform2016 [#/volume on in 11:58 PM ] in source Blood by data Automated count Granulocy 37.0 - % High No Jun 09 aga/100 80.0 inform2016 leukocyte on in 11:58 PM s in source Blood by data Automated count Hematocri 37.0 - % Low Jun 09 t [Volume 47.0 informati 2016 on in 11:58 PM Fraction] source of Blood data Hemoglobi 12.2 - g/dL Low Jun 09 n 16.2 informati 2016 [Mass/vol on in 11:58 PM ume] in source Blood data Lymphocyt 0.7 - 4.5 K/mm3 Low No Jun 09 es 2016 [#/volume on in 11:58 PM ] in source Unspecifi data ed specimen by Automated count Lymphocyt 10 - 50.0 % Low No Jun 09 es 2016 [#/volume on in 11:58 PM ] in source Unspecifi data ed specimen by Automated count Erythrocy 27 - 31.2 pg High No Jun 09 te mean 2016 corpuscul on in 11:58 PM ar source hemoglobi data n [Entitic mass] Erythrocy 31.8 - g/dl Normal Jun 09 te mean 35.4 2016 corpuscul on in 11:58 PM ar source hemoglobi data n concentra tion [Mass/vol ume] by Automated count Erythrocy 82.2 - fl Normal Jun 09 te mean 97.8 2016 corpuscul on in 11:58 PM ar volume source [Entitic data volume] by Automated count Monocytes 0.1 - 1.0 K/mm3 Normal No Jun 092016 [#/volume on in 11:58 PM ] in source Blood by data Automated count Monocytes 1.7 - 9.3 % Normal No Jun 09 / inform2016 leukocyte on in 11:58 PM s in source Blood by data Automated count Platelet 7.4 - fl Low No Jun 09 mean 10.4 2016 volume on in 11:58 PM [Entitic source volume] data in Blood by Automated count Platelets 142 - 424 K/mm3 Normal No Jun 092016 [#/volume on in 11:58 PM ] in source Blood data Erythrocy 4.2 - 5.4 M/mm3 Low No Jun 09 aga 2016 [#/volume on in 11:58 PM ] in source Amniotic data fluid Erythrocy 11.5 - % Normal No Jun 09 te 17.5 2016 distribut on in 11:58 PM ion width source [Entitic data volume] by Automated count Leukocyte 4.8 - K/MM3 High No Jun 09 s 10.8 2016 [#/volume on in 11:58 PM ] in source Blood data Differential panel, method unspecified - Observa Value Referen Units Interpr Notes Date tion ce etation Range Anisocy 1+ No No No No Jun 09 tosis informa informa informa informa 2016 [Presen tion in tion in tion in tion in 11:58 ce] in source source source source PM Blood data data data data Neutrophi 0 - 8 % High No Jun 09 ls.band 2016 form/100 on in 11:58 PM leukocyte source s in data Blood by Automated count Eosinophi 0 - 3 % Normal No Jun 09 ls/100 2016 leukocyte on in 11:58 PM s in source Blood by data Manual count LYMPH 3 10 - 50 % Low No Jun 092016 tion in 11:58 source PM data Monocytes 2 - 9 % Normal No Jun 09 /2016 leukocyte on in 11:58 PM s in source Blood by data Automated count Platele NORMAL No No No No Jun 09 ts informa informa informa informa 2016 [Presen tion in tion in tion in tion in 11:58 ce] in source source source source PM Blood data data data data by Light microsc opy Neutrophi 42 - 76 % High No Jun 09 ls ati 2016 [#/volume on in 11:58 PM ] in source Blood by data Automated count Stomato 2+ No No No No Jun 09 cytes informa informa informa informa 2016 [Presen tion in tion in tion in tion in 11:58 ce] in source source source source PM Blood data data data data by Light microsc opy Cells No #CELLS No No Jun 09 Counted informati informati informati 2017 Total [#] on in on in on in 11:58 PM in Blood source source source data data data Amylase [Enzymatic activity/volume] in Serum or Plasma Observa Value Referen Units Interpr Notes Date tion ce etation Range Amylase 25 - 115 U/L Low No Jun 09 [Enzymati informati 2017 c on in 11:58 PM activity/ source volume] data in Serum or Plasma Comprehensive metabolic 2000 panel in Serum or Plasma Observa Value Referen Units Interpr Notes Date tion ce etation Range Albumin/G 1.1 - 1.8 No Low No Jun 09 lobulin informati informati 2016 [Mass on in on in 11:58 PM ratio] in source source Serum or data data Plasma Albumin 3.4 - 5.0 gm/dL Normal No Jun 09 [Mass/vol informati 2016 ume] in on in 11:58 PM Serum or source Plasma data Alkaline 46 - 116 U/L Normal No Jun 09 phosphata informati 2016 se on in 11:58 PM [Enzymati source c data activity/ volume] in Serum or Plasma Bilirubin 0.2 - 1.0 mg/dL Normal No Jun 09 .total informati 2016 [Mass/vol on in 11:58 PM ume] in source Serum or data Plasma Urea 7 - 18 mg/dL High No Jun 09 nitrogen inform2016 [Mass/vol on in 11:58 PM ume] in source Serum or data Plasma Calcium 8.5 - mg/dL Normal No Jun 09 [Mass/vol 10.1 informati 2016 ume] in on in 11:58 PM Serum or source Plasma data Chloride 98 - 107 mmoL/L Normal No Jun 09 [Moles/vo informati 2017 lume] in on in 11:58 PM Serum or source Plasma data Carbon 21.0 - mmoL/L Normal No Jun 09 dioxide, 32.0 informati 2016 total on in 11:58 PM [Moles/vo source lume] in data Serum or Plasma Creatinin 0.55 - mg/dL High No Jun 09 e 1.02 informati 2016 [Mass/vol on in 11:58 PM ume] in source Serum or data Plasma Creatinin 50 - 200 ML/MIN Low No Jun 09 e renal informati 2017 clearance on in 11:58 PM source predicted data by Cockcroft -Gault formula Estimated 59- ML/MIN Low REFERENCE Jun 09 RANGE: 2017 glomerula >60 11:58 PM r ML/MIN/1. filtratio 73 SQUARE n rate METERSIf (GF this patient is -A merican, then multiply theresult by 1.210. Globulin 1.3 - 3.2 gm/dL High No Jun 09 [Mass/vol informati 2016 ume] in on in 11:58 PM Serum source data Glucose 74 - 106 mg/dL High No Jun 09 [Mass/vol informati 2017 ume] in on in 11:58 PM Serum or source Plasma data Potassium 3.5 - 5.1 mmoL/L Normal No Jun 09 inform2016 [Moles/vo on in 11:58 PM lume] in source Serum or data Plasma Sodium 136 - 145 mmoL/L Normal No Jun 09 [Moles/vo informati 2016 lume] in on in 11:58 PM Serum or source Plasma data Aspartate 15 - 37 U/L Normal No Jun 092016 aminotran on in 11:58 PM sferase source [Enzymati data c activity/ volume] in Serum or Plasma Alanine 12 - 78 U/L Normal No Jun 09 aminotran inform2016 sferase on in 11:58 PM [Enzymati source c data activity/ volume] in Serum or Plasma Protein 6.4 - 8.2 gm/dL Normal No Jun 09 [Mass/vol informati 2016 ume] in on in 11:58 PM Serum or source Plasma data Lipase [Enzymatic activity/volume] in Serum or Plasma Observa Value Referen Units Interpr Notes Date tion ce etation Range Lipase 73 - 393 U/L Normal No Jun 09 [Enzymati informati 2017 c on in 11:58 PM activity/ source volume] data in Serum or Plasma Urinalysis dipstick W Reflex Microscopic panel in Urine Observa Value Referen Units Interpr Notes Date tion ce etation Range Appeara CLOUDY CLEAR No No No Jun 09 nce of informa informa informa 2016 Urine tion in tion in tion in 11:50 source source source PM data data data Bacteri 4+ O No No No Jun 09 a informa informa informa 2016 [Presen tion in tion in tion in 11:50 ce] in source source source PM Urine data data data sedimen t by Light microsc opy Bilirub NEGATIV NEG No No No Jun 09 in E informa informa informa 2016 [Presen tion in tion in tion in 11:50 ce] in source source source PM Urine data data data by Test strip Erythro 3+ NEG No Abnorma No Jun 09 cytes informa l informa 2016 [Presen tion in tion in 11:50 ce] in source source PM Urine data data Color YELLOW YELLOW No No No Jun 09 of informa informa informa 2017 Urine tion in tion in tion in 11:50 source source source PM data data data Glucose NEG No No No Jun 09 [Mass/vol informati informati informati 2017 ume] in on in on in on in 11:50 PM Urine by source source source Test data data data strip Ketones NEGATIV NEG mg/dL No No Jun 09 E informa informa 2016 [Presen tion in tion in 11:50 ce] in source source PM Urine data data by Automat ed test strip Mucus 2+ NEG No Abnorma No Jun 09 [Presen informa l informa 2016 ce] in tion in tion in 11:50 Urine source source PM sedimen data data t by Light microsc opy Nitrite NEGATIV NEG No No No Jun 09 E informa informa informa 2016 [Presen tion in tion in tion in 11:50 ce] in source source source PM Urine data data data by Test strip pH of 5.0 - 8.5 No Normal No Jun 09 Urine informati informati 2016 on in on in 11:50 PM source source data data Protein NEG mg/dL High No Jun 09 [Mass/vol informati 2017 ume] in on in 11:50 PM Urine by source Automated data test strip Erythro 20-50 0 rbc/hpf No No Jun 09 cytes informa informa 2016 [Presen tion in tion in 11:50 ce] in source source PM Urine data data sedimen t by Light microsc opy Specific 1.005 - No Normal No Jun 09 gravity 1.030 informati informati 2017 of Urine on in on in 11:50 PM source source data data Epithel 5-10 0 - 5 #/hpf No No Jun 09 ial informa informa 2017 cells.s tion in tion in 11:50 quamous source source PM data data [Presen ce] in Urine sedimen t by Microsc opy high power field Urobili 0.2 NEG E.U./dL No No Jun 09 nogen informa informa 2016 [Presen tion in tion in 11:50 ce] in source source PM Urine data data by Test strip Leukocyte O wbc/hpf No No Jun 09 s informati informati 2017 [#/volume on in on in 11:50 PM ] in source source Urine data data Urinalysis dipstick W Reflex Microscopic panel in Urine Observa Value Referen Units Interpr Notes Date tion ce etation Range Appeara CLOUDY CLEAR No No No Jun 09 nce of informa informa informa 2017 Urine tion in tion in tion in 11:50 source source source PM data data data Bilirub NEGATIV NEG No No No Jun 09 in E informa informa informa 2016 [Presen tion in tion in tion in 11:50 ce] in source source source PM Urine data data data by Test strip Erythro 3+ NEG No Abnorma No Jun 09 cytes informa l informa 2016 [Presen tion in tion in 11:50 ce] in source source PM Urine data data Color YELLOW YELLOW No No No Jun 09 of informa informa informa 2017 Urine tion in tion in tion in 11:50 source source source PM data data data Glucose NEG No No No Jun 09 [Mass/vol informati informati informati 2016 ume] in on in on in on in 11:50 PM Urine by source source source Test data data data strip Ketones NEGATIV NEG mg/dL No No Jun 09 E informa informa 2016 [Presen tion in tion in 11:50 ce] in source source PM Urine data data by Automat ed test strip Mucus 2+ NEG No Abnorma No Jun 09 [Presen informa l informa 2017 ce] in tion in tion in 11:50 Urine source source PM sedimen data data t by Light microsc opy Nitrite NEGATIV NEG No No No Jun 09 E informa informa informa 2016 [Presen tion in tion in tion in 11:50 ce] in source source source PM Urine data data data by Test strip pH of 5.0 - 8.5 No Normal No Jun 09 Urine informati informati 2017 on in on in 11:50 PM source source data data Protein NEG mg/dL High No Jun 09 [Mass/vol informati 2017 ume] in on in 11:50 PM Urine by source Automated data test strip Specific 1.005 - No Normal No Jun 09 gravity 1.030 informati informati 2017 of Urine on in on in 11:50 PM source source data data Urobili 0.2 NEG E.U./dL No No Jun 09 nogen informa informa 2017 [Presen tion in tion in 11:50 ce] in source source PM Urine data data by Test strip Influenza virus A+B Ag [Presence] in Unspecified specimen Observa Value Referen Units Interpr Notes Date tion ce etation Range Influen NOT NOT No No No Jun 09 za DETECTE DETECTD informa informa informa 2017 virus A D tion in tion in tion in 12:25 Ag source source source AM [Presen data data data ce] in Unspeci fied specime n Influen NOT NOT No No No Jun 09 za DETECTE DETECTD informa informa informa 2017 virus B D tion in tion in tion in 12:25 Ag source source source AM [Presen data data data ce] in Unspeci fied specime n
--- OUTSIDE RECORDS SUMMARY | 2017-10-27 13:14 | External Medical Summary Rpt ---
[...] scan will follow via compute r,mail, or service station console operator deliver yVanPerfo rmed at: - [facility] [id number] Directo r: Rodrigue Hutchinson ti PhD, Phone: [phone] Albumin 2.9 - 4.4 g/dL No No [...] etric Plasma assay (ICMA)Per formed at: - [facility] [id number] [address] [place], [place] [id number] [employer] Lathe Operator: Rodrigue Lanza PhD, Phone: [phone] Iron and TIBC Observa Value Referen [...] PM in Serum source or Plasma data [address] [id number] [employer] Lathe Operator: Rodrigue Lanza PhD, Phone: [phone] Comprehensive metabolic 2000 panel in Serum [...]
[2017-10-27 13:30] VITALS: BP 151/91
[2017-10-27 14:08] VITALS: BP 151/91
[2017-10-27 15:39] LABS: HEMOGLOBIN 9.8 g/dL (12.2-16.2); LYMPH # 2.8 K/mm3 (0.7-4.5); LYMPH % 30.7 % (10-50.0)
[2017-10-27 16:00] VITALS: BP 179/67
--- NOTE | 2017-10-27 22:06 | RADIOLOGY REPORT PS360 ---
[facility] LUNG VENT PERFUSION HISTORY: Shortness of air, elevated d-dimer POSSIBLE PE ORDERING PHYSICIAN: John Falcon MD PATIENT AGE: 67 years DOSE: 36.3 mCi technetium DTPA inhaled 8.07 mCi technetium MAA IV COMPARISON: Chest x-ray of the same day FINDINGS: There is decrease activity in the superior aspect of the right upper lobe on both the perfusion and delayed images. This is felt to be artifactual in nature not apparent in the remaining views.. No mismatching defects are evident. No perfusion defects apparent. There is some minimal clumping of the radiopharmaceutical centrally on the ventilation images nonspecific.. IMPRESSION: Low probability for pulmonary embolus.
[2017-10-27 22:07] VITALS: BP 140/71
[2017-10-27 22:10] VITALS: BP 140/71
--- NOTE | 2017-10-27 22:17 | RADIOLOGY REPORT PS360 ---
CHEST(2 VIEWS-NOT PORTABLE) HISTORY: Shortness of breath, elevated d-dimer SYNCOPAL EPISODE, SOB ORDERING PHYSICIAN: John Falcon MD PATIENT AGE: 67 years COMPARISON: 03/22/2017 FINDINGS: There is cardiomegaly with pulmonary venous congestion and interstitial edema with small bilateral effusions consistent with congestive heart failure. No lobar consolidation or collapse. Patchy density is present in the right lung base and could be due to an area of atelectasis infiltrate or alveolar edema. No acute bony anomalies. IMPRESSION: 1. CHF with interstitial edema and small bilateral effusions 2. Patchy infiltrate versus atelectasis or pulmonary edema in the right lung
[2017-10-28] VITALS (12 sets, daily range): BP systolic 130–187; BP diastolic 52–87
[2017-10-28 07:20] LABS: HEMOGLOBIN 8.9 g/dL (12.2-16.2); LYMPH # 1.6 K/mm3 (0.7-4.5)
--- NOTE | 2017-10-28 07:29 | PHARMACY CLINIC NOTE ---
Patient Demographics Patient Demographics Admission date: 10/27/17 Date: 10/28/17 Time: 07 Allergies Coded Allergies: Penicillins (THROAT SWELLING 02/01/17) HEIGHT- FT: 5 IN: 6.00 K.348 VTE General Information Labs: Laboratory Tests 10/28 10/27 0608 1515 Hematology Hgb (12.2 - 16.2 g/dL) 8.9 L 9.8 L Hct (37.0 - 47.0 %) 27.7 L 30.1 L Plt Count (142 - 424 K/mm3) 340 389 Disclaimer The following section includes nursing documentation that has been pulled in for pharmacy review. Patient's VTE score: 2 Patient's VTE Risk: VERY LOW RISK Clinical trial participant? No VTE prophylaxis NQF [id number] VTE prophylaxis ordered? Yes Type of prophylaxis/treatment: Lovenox at 0729
--- NOTE | 2017-10-28 08:21 | ACUTE CARE PROGRESS NOTE (QUA) ---
Progress Notes Subjective Date 10/28/17 Time 0730 Note Patient continues to have shortness of breath that worsens with exertion. States "I don't feel any better." Alert and oriented x3. Rate and rhythm regular. Trace BLE edema, pulses 2+. LS with crackles bilateral bases. Abdomen soft and non-tender. Patient/family reports: shortness of breath Nursing reports: no complaints Objective Findings Last VS-Temp:98.6 B/P:185/61 Pulse:68 Resp:22 SaO2:91 ROOM AIR Last weight lbs:208 oz:0 K.348 Method:Bed Scales Reviewed: medications, vital signs, lab results, radiology report Assessment/Plan Problem List 1. CHF (congestive heart failure) Assessment/Plan: IV Lasix x1. Consult cardiology for RHC/LHC consideration. Echo today. 2. Shortness of breath Assessment/Plan: VQ Scan with low probability for PE. Lasix as listed above. 3. Bradycardia Assessment/Plan: Improved. Rate 55-70 through the night. Patient condition Stable Plan: continue current care This inpt stay is expected to cross 2 MNs from start of care Yes at 0821
--- NOTE | 2017-10-28 09:15 | CONSULT NOTE ---
Standard Demographics Patient Demo Date of Consultation: 10/28/17 Referring Provider: John Falcon MD Reason for Consultation: Syncope, SOA, Elevated troponin PRIMARY DIAGNOSIS: SYNCOPAL EPISODE Problem list Problem list: 1. DM, treated for 3 yrs 2. HTN, treated for many years 3. Obesity 4. Moderate MR with mild reduced EF of 50% and HHD on echo, 08/2017 5. CKD, stage 3, Cr and GFR 34 6. Anemia, per Dr. Falcon and Dr. Willow Stringer ? anemia of chronic disease (no evidence of GI source per patient) 7. Hyperlipidemia 8. History of cervical and lumbar back surgeries. History of present illness: History of present illness: 67-year-old white female with history of diabetes, hypertension and anemia presented to Dr. Falcon's office yesterday for evaluation of shortness of breath and lightheadedness. While in the office the patient had a near syncopal episode. She states she couldn't hear Dr. Falcon talking to her she could not respond to him. Symptoms resolved fairly quickly the patient was admitted for further evaluation. Cardiac enzymes have returned mildly elevated at 0.083. Electrocardiogram shows sinus rhythm with left ventricular hypertrophy by criteria with possible septal infarct pattern. Patient denies any recent chest pain, pressure or tightness. She does have shortness of breath that limits her activity and occurs with just walking from room to room. Patient has reportedly been on Lasix recently for lower extremity edema without significant improvement in her shortness of breath. Echocardiogram performed in August shows an ejection fraction of about 50 percent with moderate mitral regurgitation. She has some mild hypertensive changes to the LEFT atrium and LEFT ventricule. Patient did undergo a VQ scan (CT not performed due to CKD) yesterday, due to elevated D-dimer,that was read as low probability. Cardiology consulted for evaluation and recommendations. Past Medical History: General: Hypertension Yes CVA No Seizures No TB No COPD No Asthma No Diabetes Yes Insulin Dependent No Insulin Pump No Angina No DC No Hyperlipidemia Yes Urinary No Cancer No Rheumatic H.D. No Ulcers Yes MRSA No GB Disease No Other RENAL STONES Past Surgical HX: Previous Surgery?Y D & C SMALL CYST RT BREAST CERVICAL DISC LOW BACK SURGERY X 3 KIDNEY STONE REMOVAL Tubal Ligation LUMP ASPIRATION Allergies Coded Allergies: Penicillins (THROAT SWELLING 02/01/17) Home medications: Reported Medications Venlafaxine Hydrochloride (Effexor XR 75MG) 75 MG PO QHS Atenolol (Atenolol) 100 MG PO DAILY Multivitamin (Daily Neelima) 1 TAB PO DAILY ASPIRIN (Aspirin) 81 MG PO DAILY Gabapentin 300 MG PO TID TRAMADOL HCL (Tramadol) 50 MG PO BIDP METFORMIN HCL (Metformin 1000MG) 1,000 MG PO BID Rosuvastatin Calcium (Crestor) 5 MG PO QHS Omeprazole Magnesium (Prilosec) Current Medications: Current Medications Enoxaparin Sodium 95 MG BID SC Furosemide 60 MG ONCE ONE IV (DC) Furosemide 60 MG ONCE ONE IV (CAN) Gabapentin 300 MG TID PO Metoprolol Tartrate 50 MG BID PO Venlafaxine HCl 75 MG QHS PO Miscellaneous 1 DOSE ONCE ONE IJ (DC) Miscellaneous 1 DOSE ONCE ONE IV (DC) Sodium Chloride 10 ML ONCE ONE IV (DC) Tramadol HCl 50 MG Q6HP PRN PO Enoxaparin Sodium 100 MG ONCE ONE SC (DC) Aspirin 324 MG ONCE ONE PO (DC) Miscellaneous Information 1 EACH PRN PRN XX Nicotine 21 MG DAILYP PRN TD Immunization HX DT/Tetanus Unknown Flu [id number] Pneumonia Unknown TB Test in last year No Family history Family HX Family Hx Insignificant No Diabetes No CAD Yes Hypertension Yes Hyperlipidemia Yes Cancer Yes TB No Social Hx: Smoking HX Are you/the child exposed to second-hand smoke: No Alcohol Alcohol: No Hx of Drug Use Drug Use? No Patien't marital status is Patient's support system is good Review of systems: Constitutional No: no symptoms reported. Respiratory see HPI, shortness of breath, SOB with excertion. Cardiovascular No no symptoms reported Gastrointestinal/Abdominal No no symptoms reported Genitourinary No: no symptoms reported. Musculoskeletal back pain. Neurological Yes: see HPI. Exam: Admission Vital Signs: 1ST Vital Signs Result Date Time Pulse Ox 96 10/27 1330 B/P 151/91 10/27 1330 O2 Delivery ROOM AIR 10/27 1330 Temp 98.6 10/27 1330 Pulse 67 10/27 1330 Resp 18 10/27 1330 O2 Flow Rate 2 10/27 2021 Last Vital Signs: Vital Signs Result Date Time Pulse Ox 91 10/28 0759 B/P 185/61 12/07 0759 O2 Flow Rate 2 10/28 759 Temp 98.6 10/28 759 Pulse 68 10/28 759 Resp 22 10/28 759 O2 Delivery ROOM AIR 10/28 430 Exam General appearance: alert, awake, no acute distress Neck: no carotid bruit, no JVD Cardiovascular: regular rate & rhythm, murmur Respiratory: clear to auscultation ABD: soft, no tenderness Extremities: moves all, edema Neuro: alert, intact, oriented Laboratory data: Laboratory Tests 10/28/17 06: Sodium 144, Potassium 3.6, Chloride 107, Carbon Dioxide 29, BUN 23 H, Creatinine 1.5 H, Estimated Creat Clear 53, Estimated GFR (MDRD) 34 L, Glucose 127 H, Calcium 8.6, WBC 6.9, RBC 3.01 L, Hgb 8.9 L, Hct 27.7 L, MCV 91.9, RDW 13.3, Plt Count 340, MPV 7.5, Gran % 61.4, Gran # 4.2, Lymphocytes % 23.0, Monocytes % 7.8, Eosinophils % 7.1, Basophils % 0.7, Lymphocytes # 1.6, Monocytes # 0.5, Eosinophils # 0.5 H, Basophils # 0.1, PUBS MCHC 32.2, MCH 29.6 10/27/17 2155: Creatine Kinase 121, CK-MB (CK-2) Rel Index 0.6, CK and CKMB Interp 0.7, Troponin I 0.08 H 10/27/17 1855: Creatine Kinase 115, CK-MB (CK-2) Rel Index 0.4, CK and CKMB Interp 0.5, Troponin I 0.08 H 10/27/17 1601: Creatine Kinase 117, CK-MB (CK-2) Rel Index 0.6, CK and CKMB Interp 0.7, Troponin I 0.08 H 10/27/17 1515: Triglycerides 283 H, Cholesterol 136, LDL Cholesterol 39.4, VLDL Cholesterol 56.6 H, HDL Cholesterol 40.0 10/27/17 1515: Sodium 143, Potassium 3.4 L, Chloride 106, Carbon Dioxide 29, BUN 23 H, Creatinine 1.6 H, Estimated Creat Clear 49 L, Estimated GFR (MDRD) 32 L, Glucose 124 H, Calcium 9.1, Total Bilirubin 0.6, AST 21, ALT 20, Alkaline Phosphatase 120 H, B-Natriuretic Peptide 1340 H, Total Protein 7.4, Albumin 3.5, Globulin 3.9 H, Albumin/Globulin Ratio 0.9 L, D-Dimer 2670 *H, WBC 9.0, RBC 3.30 L, Hgb 9.8 L, Hct 30.1 L, MCV 91.2, RDW 13.3, Plt Count 389, MPV 7.9 , Gran % 55.6, Gran # 5.0, Lymphocytes % 30.7, Monocytes % 6.7, Eosinophils % 6.3, Basophils % 0.7, Lymphocytes # 2.8, Monocytes # 0.6, Eosinophils # 0.6 H, Basophils # 0.1, PUBS MCHC 32.7, MCH 29.8 Plan Assessment: 1. Elevated troponins, etiology uncertain. Concern for CAD/NSTEMI in this diabetic patient with HTN and Hyperlipidemia. 2. Shortness of breath, progressive. Low probability VQ scan, 10/27/2017. Possible angina equivalent in a diabetic but also concerned for PE and pulmonary HTN. Unable to perform CTA of chest due to CKD. 3. Moderate mitral regurgitation by echo, 08/2017. Question more severe than noted on echo so will assess with left heart cath but may need MANGO. 4. Diabetes mellitus 5. Hypertensive with hypertensive changes on electrocardiogram and echocardiogram. 6. Obesity 7. Anemia, pt sees Dr. Daugherty. Etiology uncertain per patient. Plan: 1. Discussed with Dr. Chakraborty. Recommendation is for RIGHT and LEFT heart cath to further evaluate the patient's shortness of breath and mitral regurgitation. Risk and benefits discussed with patient. She agrees to proceed. 2. Further recommendations to follow. at 0914
--- NOTE | 2017-10-28 10:41 | RADIOLOGY REPORT PS360 ---
CARDIAC CATHETERIZATION DATE OF CATHETERIZATION:10/28/2017 10:14 AM PROCEDURES: 1. Right heart catheterization 2. Left heart catheterization 3. Left ventriculogram 4. Selective coronary angiogram INDICATION FOR TEST: 1. Unstable angina 2. Biventricular congestive heart failure 3. Pulmonary hypertension Informed consent was obtained prior to the procedure. COMPLICATIONS: None ESTIMATED BLOOD LOSS: Less than 10 ml. TECHNIQUE: One percent lidocaine was used to anesthetize the right anterior aspect of the right neck. The right internal jugular vein was accessed via a centimeter technique and a 7 [place]ian sheath was placed in the right internal jugular vein. Following this one percent lidocaine was used to anesthetize the right anterior aspect of the right wrist in the right radial artery was accessed via the Seldinger technique. A 6 [place]ian hydrophilic sheath was placed in the right radial artery and an arterial cocktail using nitroglycerin and verapamil and heparin was administered intra-arterially. A trap catheter was used to perform left heart catheterization left ventriculogram selective coronary angiography while a [place] catheter was used to perform right heart catheterization via the right IJ. At the end of the procedure the sheath was removed good hemostasis was achieved using TR banding the patient transferred to the postop holding area in stable condition for right IJ sheath removal ANGIOGRAPHIC RESULTS: 1. The left main artery normal 2. The left anterior descending artery has normal 3. The circumflex artery is non dominant and has normal 4. The right coronary artery arch dominant normal 5. The BOWDEN ventriculogram reveals hyperdynamic 75% The left ventricular end-diastolic pressure 5 mmHg HEMODYNAMICS: Right atrial pressure is 15 mm Hg. Pulmonary arterial pressure is 48/25 mm Hg. Pulmonary artery occlusion pressure is 25 mm Hg. SATURATIONS: RA is 75 %. PA is 74 %. IMPRESSION: 1. Normal coronary arteries 2. Hyperdynamic ejection fraction consistent with hypertensive heart disease and diastolic dysfunction 3. Moderate to severe pulmonary hypertension 4. Biventricular congestive heart failure as evidenced by elevated right atrial pressure and elevated left ventricular end-diastolic pressure PLAN: 1. Diuresis 2. Treatment of hypertension 3. Treatment of moderate to severe diastolic dysfunction
[2017-10-28 10:55] LABS: ARTERIAL O2 SAT CATH LAB 74.9 % (90-100); VENOUS O2 SAT CATH LAB 75.6 % (75-80)
[2017-10-28] MEDS ORDERED: GABAPENTIN300 MG PO (11:17)
[2017-10-28] MEDS ORDERED: COLCHICINE0.6 M4 PO (11:27)
[2017-10-28] MEDS ORDERED: FUROSEMIDE 20MG20 MG PO (11:28)
[2017-10-28] MEDS ORDERED: HYDROCODONE BIT PO (11:29)
[2017-10-28] MEDS ORDERED: BISOPROLOL 5MG T5 MG PO (11:30)
--- NOTE | 2017-10-28 16:25 | RADIOLOGY REPORT PS360 ---
PROCEDURE: 2-D M-mode and color Doppler study INDICATIONS FOR THE TEST: Chest pain + COPD Heart Murmur Tobacco Smoking Palpitations Fatigue Syncope Edema Hypertension+Diabetes Mellitus+ Rheumatic Fever SOB+JOSEPH Obesity+Hyperlipidemia+ Family History HD Additional History PATIENT INFORMATION HEIGHT: 66 WEIGHT:212 GENDER: Female B/P: 2-D/M-MODE INTERPRETATION: 2-D MEASUREMENTS OBSERVED VALUES IN CMS Right Ventricular Dimension (RVDd) 2.2 Interventricular Septum (Thickness)(IVsd) 1.2 Left Ventricular Internal Dimensions(LVIDd) 5.7 Left Ventricular Posterior Wall (Thickness)(LVPWd) 1.0 Aortic Root 3.9 Aortic Cusp Separation 2.1 Left Atrial Dimensions (LAD) 3.9 2D 1. Left atrium is mildly enlarged, left ventricle is normal size, there is mild concentric left ventricular hypertrophy, visually estimated ejection fraction 50% with no obvious regional wall motion abnormality. 2.The right atrium and right ventricle are normal size and contractility. 3. The aortic valve is minimally thickened and fibrosed leaflet display good mobility. 4. The mitral and tricuspid valve leaflets are minimally thickened. 5. The pulmonic valve is poorly visualized. 6. No significant pericardial effusion noted. DOPPLER INTERROGATION: Doppler interrogation of the aortic, mitral and tricuspid valve is presence of moderate mitral and mild tricuspid regurgitation, tricuspid and jet velocity is insufficient for calculation of the right ventricular systolic pressure, diastolic parameters are inconclusive CONCLUSION: 1. Mildly enlarged left atrium, normal left ventricular size, mild concentric left ventricular hypertrophy, visually estimated ejection fraction 50% with no obvious regional wall motion abnormality, diastolic parameters are inconclusive. 2. Moderate mitral and mild tricuspid regurgitation. 3. No significant pericardial effusion noted.
[2017-10-29] VITALS (7 sets, daily range): BP systolic 112–148; BP diastolic 50–57
--- NOTE | 2017-10-29 07:52 | DISCHARGE SUMMARY STANDARD ---
Demographics Admit date: 10/27/17 Discharge date: 10/29/17 History of present illness History of present illness 67-year-old white female with history of diabetes, hypertension and anemia presented to Dr. Falcon's office yesterday for evaluation of shortness of breath and lightheadedness. While in the office the patient had a near syncopal episode. She states she couldn't hear Dr. Falcon talking to her she could not respond to him. Symptoms resolved fairly quickly the patient was admitted for further evaluation. Cardiac enzymes have returned mildly elevated at 0.083. Electrocardiogram shows sinus rhythm with left ventricular hypertrophy by criteria with possible septal infarct pattern. Patient denies any recent chest pain, pressure or tightness. She does have shortness of breath that limits her activity and occurs with just walking from room to room. Patient has reportedly been on Lasix recently for lower extremity edema without significant improvement in her shortness of breath. Echocardiogram performed in August shows an ejection fraction of about 50 percent with moderate mitral regurgitation. She has some mild hypertensive changes to the LEFT atrium and LEFT ventricule. Patient did undergo a VQ scan (CT not performed due to CKD) yesterday, due to elevated D-dimer,that was read as low probability. Cardiology consulted for evaluation and recommendations. Above history of present illness per cardiology consultation. Please see scanned H and P from my office for details. Hospital Course Hospital Course: Patient was admitted, she was ruled out for myocardial infarction by enzyme and electrocardiogram criteria which showed abnormalities. She was found to have a high d-dimer. VQ scan showed low probability of pulmonary embolism, but given her symptoms RIGHT and LEFT heart catheterization were performed which showed no evidence of coronary atherosclerosis, preserved ejection fraction of 50 percent, and evidence of significant pulmonary hypertension. She was given Lasix last night and diureses quite a bit and this morning feels good. Her other issue is anemia. She had no guaiac positive stools here, review of outpatient hematology workup reveals that the hematology service thinks that she has intermittent blood loss. Plan will be to do a tagged RBC scan today before discharge and follow this up as an outpatient with capsule enteroscopy if needed. This morning patient feels better, lungs are clear, heart rate regular. No edema noted. Plan will be to discharge home on twice a day Lasix. Consider further interventions for pulmonary hypertension versus subspecialty cardiology follow- up as an outpatient. Discharge diagnoses Problem List 1. CHF (congestive heart failure) 2. Shortness of breath 3. Bradycardia 4. Pulmonary hypertension Medications Medications: Discharge meds are as noted. Follow up Follow up in office in: 5 DAYS with: John Falcon MD at 0751
[2017-10-29] MEDS ORDERED: FUROSEMIDE 20MG20 MG PO (07:53)
--- NOTE | 2017-10-29 14:28 | RADIOLOGY REPORT PS360 ---
[facility] GI BLEED (TAGGED RBC) CLINICAL INDICATION: ANEMIA ORDERING PHYSICIAN: John Falcon MD PATIENT AGE: 67 years DOSE: 25.7 mCi technetium sulfur colloid without a lot of [blood cells COMPARISON: None FINDINGS: Blood pull and delayed images obtained 5 to 60 minutes along with a 180 minute delayed image. No evidence of acute lower GI bleed. IMPRESSION: Negative tagged red blood cell GI bleeding scan
[2017-11-02] MEDS ORDERED: LASIX20 MG (14:19)
== END 2017-10-29 17:42 | disposition home or self-care (01) | DRG 287 ==
LOC: 2ND 12:56
PROVIDERS: Internal Medicine; Internal Medicine Adolescent Medicine
PROC: B2111ZZ Fluoroscopy of Multiple Coronary Arteries using Low Osmolar Contrast (ICD-10-PCS; 2017-10-28)
PROC: B2151ZZ Fluoroscopy of Left Heart using Low Osmolar Contrast (ICD-10-PCS; 2017-10-28)
PROC: 4A023N8 Measurement of Cardiac Sampling and Pressure, Bilateral, Percutaneous Approach (ICD-10-PCS; principal; 2017-10-28 11:00)
DX: I50.82 Biventricular heart failure (principal); E11.22 Type 2 diabetes mellitus with diabetic chronic kidney disease; I13.0 Hypertensive heart and chronic kidney disease with heart failure and stage 1 through stage 4 chronic kidney disease, or unspecified chronic kidney disease; I27.20 Pulmonary hypertension, unspecified; I50.30 Unspecified diastolic (congestive) heart failure; N18.3 Chronic kidney disease, stage 3 (moderate)
CPT/HCPCS: A9540; A9541; A9560; A9567; C1725; C1769; C1894; G0378; J1644; J2405; Q9967